=== PATIENT | female | born 1955 | race Caucasian/White ===

== ENCOUNTER 2020-01-07 20:50 | Inpatient (IN) | payer MEDICAID ==
[~2020-01-07] VITALS: Ht 147.3 cm; Wt 181.4 kg
[2020-01-07 20:58] VITALS: BP 140/98
[2020-01-07] MEDS ORDERED: ALUMINUM HYD/MAG/SIMETHICONE 30 ML UDC PO ONE (21:45)
[2020-01-07] MEDS ORDERED: ONDANSETRON 4 MG ODT PO ONE (21:45)
[2020-01-07] MEDS ORDERED: FAMOTIDINE 20 MG TAB PO ONE (21:45)
[2020-01-07 22:24] LABS: ALBUMIN 2.7 g/dL (3.4-5.0); ANION GAP 15.3 (8-16); CARBON DIOXIDE 26.3 mmol/L (21-32); CREATININE 0.9 mg/dL (0.6-1.3); POTASSIUM 3.6 mmol/L (3.5-5.1); TOTAL BILIRUBIN 0.5 mg/dL (0.0-1.0)
[2020-01-07 22:26] LABS: HEMATOCRIT 37.3 % (36-48); MEAN CORPUSCULAR HEMOGLOBIN 30 pg (27-31); MEAN CORPUSCULAR HGB CONC 32 g/dL (33-37); MEAN CORPUSCULAR VOLUME 92.3 fL (80-94); PLATELET COUNT (AUTO) 407 K/uL (140-450); RED BLOOD CELL COUNT(AUTO) 4.04 MIL/uL (4.20-5.40); RED CELL DISTRIBUTION WIDTH 14.3 % (11.6-13.7)
[2020-01-07 22:29] LABS: LYMPHOCYTES % (MANUAL) 15 % (20-46); MONOCYTES % (MANUAL) 5 % (5-12)
[2020-01-07] MEDS ORDERED: KETOROLAC 15 MG/ML VIAL IVP ONE (22:45)
[2020-01-07] MEDS ORDERED: NACL 0.9% 1,000 ML IV ONE (22:45)
[2020-01-07] MEDS ORDERED: ONDANSETRON 4 MG/2 ML VIAL IVP ONE (22:45)
[2020-01-07] MEDS ORDERED: KETOROLAC 15 MG/ML VIAL ONE (22:56)
[2020-01-07] MEDS ORDERED: ONDANSETRON 4 MG/2 ML VIAL ONE (22:56)
[2020-01-07 23:26] LABS: APPEARANCE,URINE CLOUDY (CLEAR); BILIRUBIN,URINE NEGATIVE (NEGATIVE); BLOOD, URINE 3+ (NEGATIVE); COLOR,URINE YELLOW (YELLOW); LEUKOCYTE ESTERASE ,URINE 2+ (NEGATIVE); NITRITE, URINE POSITIVE (NEGATIVE); UGLUCOSE NEGATIVE (NEGATIVE)
[2020-01-08 00:04] LABS: RBC,URINE 50-80 /HPF (0-5); WBC,URINE TOO MANY TO COUNT /HPF (0-5)
[2020-01-08] MEDS ORDERED: LIDOCAINE JELLY 2% 30 ML TUBE TP ONE (01:13)
[2020-01-08] MEDS ORDERED: NACL 0.9% 1,000 ML IV ONE (01:15)
[2020-01-08] MEDS ORDERED: cefTRIAXone 1,000 MG VIAL ONE (01:30)
[2020-01-08 04:00] VITALS: BP 144/71
[2020-01-08] MEDS: metroNIDAZOLE 500 MG/NS PREMIX 100 ML IV SCH ×3 (05:51→20:24)
[2020-01-08 05:56] LABS: BASOPHILS # (AUTO) 0.1 K/uL (0.00-0.22); BASOPHILS % (AUTO) 0.5 % (0.0-2.0); EOSINOPHILS # (AUTO) 0.1 K/uL (0-0.4); EOSINOPHILS % (AUTO) 0.7 % (0.0-4.0); HEMATOCRIT 35.5 % (36-48); HEMOGLOBIN 11.5 g/dL (12.0-16.0); LYMPHOCYTES # (AUTO) 2.9 K/uL (2.5-16.5); LYMPHOCYTES % (AUTO) 21.1 % (20.5-51.1); MEAN CORPUSCULAR HEMOGLOBIN 31 pg (27-31); MEAN CORPUSCULAR HGB CONC 33 g/dL (33-37); MEAN CORPUSCULAR VOLUME 93.8 fL (80-94); MONOCYTES # (AUTO) 0.6 K/uL (0.8-1.0); MONOCYTES % (AUTO) 4.5 % (1.7-9.3); NEUTROPHILS % (AUTO) 73.2 % (42.2-75.2); PLATELET COUNT (AUTO) 331 K/uL (140-450); RED BLOOD CELL COUNT(AUTO) 3.78 MIL/uL (4.20-5.40); RED CELL DISTRIBUTION WIDTH 14.6 % (11.6-13.7); WHITE BLOOD COUNT (AUTO) 13.7 K/uL (4.8-10.8)
[2020-01-08 06:12] LABS: ALBUMIN 2.3 g/dL (3.4-5.0); ANION GAP 15.7 (8-16); CARBON DIOXIDE 23.3 mmol/L (21-32); CREATININE 0.7 mg/dL (0.6-1.3); TOTAL BILIRUBIN 0.4 mg/dL (0.0-1.0)
[2020-01-08] MEDS ORDERED: ONDANSETRON 4 MG/2 ML VIAL IVP PRN (06:25)
[2020-01-08] MEDS: DEXT 5% / NACL 0.45% 1,000 ML IV SCH ×2 (06:25→17:23)
[2020-01-08] MEDS ORDERED: MORPHINE SULFATE 2 MG/ML SYR IVP PRN (06:25)
[2020-01-08] MEDS ORDERED: HYDROcodone/APAP 5/325 MG 1 TAB TAB PO PRN (06:25)
[2020-01-08] MEDS ORDERED: ZOLPIDEM 5 MG TAB PO PRN (06:25)
[2020-01-08] MEDS ORDERED: LORazepam 2 MG/ML VIAL IM/IVP PRN (06:25)
[2020-01-08] MEDS ORDERED: DOCUSATE SODIUM 100 MG GELCAP PO PRN (06:25)
[2020-01-08] MEDS ORDERED: ACETAMINOPHEN 325 MG TAB PO PRN (06:25)
[2020-01-08 07:01] LABS: CHOL/HDL RATIO 4.2 (1-4.5); FREE T4 (FREE THYROXINE) 1.34 ng/dL (0.76-1.46); MAGNESIUM 1.9 mg/dL (1.8-2.4); PHOSPHORUS 4.1 mg/dL (2.5-4.9); THYROID STIMULATING HORMONE 1.6 uIU/mL (0.34-3.74)
[2020-01-08 07:05] LABS: PROTHROMBIN TIME 9.8 secs (10.8-13.4)
[2020-01-08 08:00] VITALS: BP 157/73
[2020-01-08 11:00] LABS: BARBITURATE, URINE NEGATIVE ng/ml (NEG <=200); BENZODIAZEPINE, URINE POSITIVE ng/mL (NEG <=200)
[2020-01-08 11:01] LABS: CANNABINOID, URINE NEGATIVE ng/mL (NEG <=50); COCAINE, URINE NEGATIVE ng/mL (NEG <=300); OPIATE, URINE NEGATIVE ng/mL (NEG <=2000); PHENCYCLIDINE SCREEN,URINE NEGATIVE ng/mL (NEG <=25)
[2020-01-08 12:00] VITALS: BP 105/69
[2020-01-08] MEDS ORDERED: INSULIN LISPRO SLIDING SCALE 100 UNITS/ML VIAL SUBQ PRN (12:25)
[2020-01-08] MEDS ORDERED: DEXTROSE 50% 50 ML SYR IVP PRN (12:25)
[2020-01-08 16:00] VITALS: BP 112/68
[2020-01-08] MEDS: BLOOD GLUCOSE MONITORING 1 DEV DEV FS SCH ×2 (17:02→20:29)
[2020-01-08 20:00] VITALS: BP 96/54
[2020-01-09] VITALS: BP 107/55
[2020-01-09] MEDS: DEXT 5% / NACL 0.45% 1,000 ML IV SCH ×3 (02:46→22:25)
[2020-01-09 04:00] VITALS: BP 117/65
[2020-01-09] MEDS: metroNIDAZOLE 500 MG/NS PREMIX 100 ML IV SCH ×3 (05:37→21:16)
[2020-01-09] MEDS: BLOOD GLUCOSE MONITORING 1 DEV DEV FS SCH ×4 (06:35→21:17)
[2020-01-09 06:39] LABS: BASOPHILS # (AUTO) 0.1 K/uL (0.00-0.22); BASOPHILS % (AUTO) 1.1 % (0.0-2.0); EOSINOPHILS # (AUTO) 0.1 K/uL (0-0.4); EOSINOPHILS % (AUTO) 1.1 % (0.0-4.0); HEMOGLOBIN 9.4 g/dL (12.0-16.0); LYMPHOCYTES % (AUTO) 23.7 % (20.5-51.1); MEAN CORPUSCULAR HEMOGLOBIN 30 pg (27-31); MEAN CORPUSCULAR HGB CONC 33 g/dL (33-37); MEAN CORPUSCULAR VOLUME 92.9 fL (80-94); MONOCYTES # (AUTO) 0.7 K/uL (0.8-1.0); MONOCYTES % (AUTO) 7.7 % (1.7-9.3); NEUTROPHILS # (AUTO) 5.6 K/uL (1.8-7.7); NEUTROPHILS % (AUTO) 66.4 % (42.2-75.2); PLATELET COUNT (AUTO) 304 K/uL (140-450); RED BLOOD CELL COUNT(AUTO) 3.12 MIL/uL (4.20-5.40); RED CELL DISTRIBUTION WIDTH 14.2 % (11.6-13.7); WHITE BLOOD COUNT (AUTO) 8.5 K/uL (4.8-10.8)
[2020-01-09 07:01] LABS: ANION GAP 13.3 (8-16); CARBON DIOXIDE 23.6 mmol/L (21-32); CREATININE 0.5 mg/dL (0.6-1.3)
[2020-01-09 07:22] LABS: MAGNESIUM 1.9 mg/dL (1.8-2.4)
[2020-01-09 07:25] LABS: POTASSIUM 2.9 mmol/L (3.5-5.1)
[2020-01-09 08:00] VITALS: BP 112/52
[2020-01-09] MEDS ORDERED: POTASSIUM CHLORIDE 20% 40 MEQ/15 ML UDC PO SCH (08:05)
[2020-01-09] MEDS: LACTOBACILLUS RHAMNOSUS GG 1 EACH CAP PO SCH (08:48)
[2020-01-09] MEDS ORDERED: KCL 20 MEQ/WATER INJ PREMIX 200 ML IV SCH (09:00)
[2020-01-09 12:00] VITALS: BP 144/69
[2020-01-09 13:36] LABS: ALBUMIN 2.2 g/dL (3.4-5.0); ANION GAP 9.8 (8-16); CARBON DIOXIDE 26.1 mmol/L (21-32); CREATININE 0.6 mg/dL (0.6-1.3); POTASSIUM 3.9 mmol/L (3.5-5.1); TOTAL BILIRUBIN 0.2 mg/dL (0.0-1.0)
[2020-01-09 16:00] VITALS: BP 140/63
[2020-01-09] MEDS: LACTULOSE 20 GM/30 ML UDC PO SCH ×2 (16:05→21:16)
[2020-01-09] MEDS: SENNA 8.6 MG TAB PO SCH (16:05)
[2020-01-09 20:00] VITALS: BP 143/82
[2020-01-09] MEDS: SUPREP BOWEL PREP KIT 354 ML SOLN.RECON PO SCH (21:14)
[2020-01-09] MEDS: POTASSIUM CHLORIDE 20% 40 MEQ/15 ML UDC PO SCH (21:16)
[2020-01-10] VITALS: BP 144/77
[2020-01-10 04:00] VITALS: BP 140/80
[2020-01-10] MEDS: DEXT 5% / NACL 0.45% 1,000 ML IV SCH (05:09)
[2020-01-10] MEDS: metroNIDAZOLE 500 MG/NS PREMIX 100 ML IV SCH (05:10)
[2020-01-10 05:59] LABS: BASOPHILS % (AUTO) 0.6 % (0.0-2.0); EOSINOPHILS # (AUTO) 0.1 K/uL (0-0.4); EOSINOPHILS % (AUTO) 1.3 % (0.0-4.0); HEMATOCRIT 33.7 % (36-48); LYMPHOCYTES # (AUTO) 2.2 K/uL (2.5-16.5); LYMPHOCYTES % (AUTO) 33.1 % (20.5-51.1); MEAN CORPUSCULAR HEMOGLOBIN 31 pg (27-31); MEAN CORPUSCULAR HGB CONC 33 g/dL (33-37); MEAN CORPUSCULAR VOLUME 93.5 fL (80-94); MONOCYTES # (AUTO) 0.8 K/uL (0.8-1.0); MONOCYTES % (AUTO) 11.8 % (1.7-9.3); NEUTROPHILS # (AUTO) 3.6 K/uL (1.8-7.7); NEUTROPHILS % (AUTO) 53.2 % (42.2-75.2); PLATELET COUNT (AUTO) 337 K/uL (140-450); RED CELL DISTRIBUTION WIDTH 14.1 % (11.6-13.7); WHITE BLOOD COUNT (AUTO) 6.7 K/uL (4.8-10.8)
[2020-01-10 06:27] LABS: CARBON DIOXIDE 21.9 mmol/L (21-32); CREATININE 0.7 mg/dL (0.6-1.3); POTASSIUM 3.9 mmol/L (3.5-5.1)
[2020-01-10 06:32] LABS: MAGNESIUM 2.1 mg/dL (1.8-2.4); PHOSPHORUS 2.8 mg/dL (2.5-4.9)
[2020-01-10] MEDS: BLOOD GLUCOSE MONITORING 1 DEV DEV FS SCH ×5 (07:44→21:16)
[2020-01-10 08:00] VITALS: BP 141/89
[2020-01-10] MEDS: LACTOBACILLUS RHAMNOSUS GG 1 EACH CAP PO SCH (08:49)
[2020-01-10] MEDS: LACTULOSE 20 GM/30 ML UDC PO SCH ×2 (08:49→10:40)
[2020-01-10] MEDS: SUPREP BOWEL PREP KIT 354 ML SOLN.RECON PO SCH (08:50)
[2020-01-10] MEDS: SENNA 8.6 MG TAB PO SCH (08:50)
[2020-01-10] MEDS: POTASSIUM CHLORIDE 20% 40 MEQ/15 ML UDC PO SCH ×2 (08:50→21:09)
[2020-01-10] MEDS ORDERED: fentaNYL citrate 0.05 MG/ML VIAL ONE (09:56)
[2020-01-10] MEDS ORDERED: MIDAZOLAM 2 MG/2 ML VIAL ONE (09:56)
[2020-01-10] MEDS ORDERED: diphenhydrAMINE 50 MG/ML VIAL ONE (09:56)
[2020-01-10] MEDS: fentaNYL citrate 0.05 MG/ML VIAL IVP ONE ×2 (10:02→10:45)
[2020-01-10] MEDS: MIDAZOLAM 2 MG/2 ML VIAL IVP ONE ×2 (10:02→10:45)
[2020-01-10 12:00] VITALS: BP 146/81
[2020-01-11] VITALS: BP 116/73
[2020-01-11 06:07] LABS: BASOPHILS # (AUTO) 0.1 K/uL (0.00-0.22); EOSINOPHILS # (AUTO) 0.1 K/uL (0-0.4); EOSINOPHILS % (AUTO) 1.5 % (0.0-4.0); HEMATOCRIT 32.9 % (36-48); HEMOGLOBIN 10.8 g/dL (12.0-16.0); LYMPHOCYTES # (AUTO) 2.5 K/uL (2.5-16.5); LYMPHOCYTES % (AUTO) 32.8 % (20.5-51.1); MEAN CORPUSCULAR HEMOGLOBIN 31 pg (27-31); MEAN CORPUSCULAR HGB CONC 33 g/dL (33-37); MEAN CORPUSCULAR VOLUME 93.2 fL (80-94); MONOCYTES # (AUTO) 0.8 K/uL (0.8-1.0); MONOCYTES % (AUTO) 10.5 % (1.7-9.3); NEUTROPHILS # (AUTO) 4.1 K/uL (1.8-7.7); NEUTROPHILS % (AUTO) 54.2 % (42.2-75.2); PLATELET COUNT (AUTO) 359 K/uL (140-450); RED BLOOD CELL COUNT(AUTO) 3.53 MIL/uL (4.20-5.40); WHITE BLOOD COUNT (AUTO) 7.6 K/uL (4.8-10.8)
[2020-01-11 06:30] LABS: ANION GAP 12.4 (8-16); CARBON DIOXIDE 24.9 mmol/L (21-32); CREATININE 0.8 mg/dL (0.6-1.3); POTASSIUM 4.3 mmol/L (3.5-5.1)
[2020-01-11] MEDS ORDERED: LANSOPRAZOLE 30 MG CAPDR PO SCH (06:30)
[2020-01-11 06:51] LABS: MAGNESIUM 1.7 mg/dL (1.8-2.4); PHOSPHORUS 2.9 mg/dL (2.5-4.9)
[2020-01-11] MEDS: BLOOD GLUCOSE MONITORING 1 DEV DEV FS SCH ×3 (07:33→16:43)
[2020-01-11 08:00] VITALS: BP 121/85
[2020-01-11] MEDS: POTASSIUM CHLORIDE 20% 40 MEQ/15 ML UDC PO SCH (08:56)
[2020-01-11] MEDS: LACTOBACILLUS RHAMNOSUS GG 1 EACH CAP PO SCH (08:57)
[2020-01-11] MEDS: LACTULOSE 20 GM/30 ML UDC PO SCH (08:57)
[2020-01-11] MEDS ORDERED: MAGNESIUM OXIDE 400 MG TAB PO SCH (12:00)
[2020-01-11] MEDS ORDERED: SIME80TA22 PO (15:34)
[2020-01-11] MEDS ORDERED: OMEP20TC10 PO (15:34)
[2020-01-11] MEDS ORDERED: NITR100C7 PO (15:34)
[2020-01-11 16:00] VITALS: BP 118/81
== END 2020-01-11 18:00 | disposition home or self-care (01) | DRG 720 ==
LOC: MED 20:50 → MTU 01-08 01:34
PROVIDERS: ADMIT Family Medicine; ATTEND Family Medicine
PROC: 0DB68ZX Excision of Stomach, Via Natural or Artificial Opening Endoscopic, Diagnostic (ICD-10-PCS; principal; 2020-01-10 09:45)
PROC: 0DJD8ZZ Inspection of Lower Intestinal Tract, Via Natural or Artificial Opening Endoscopic (ICD-10-PCS; 2020-01-10 09:45)
DX: A41.9 Sepsis, unspecified organism (principal); N39.0 Urinary tract infection, site not specified; E43 Unspecified severe protein-calorie malnutrition; Z68.45 Body mass index [BMI] 70 or greater, adult; K25.9 Gastric ulcer, unspecified as acute or chronic, without hemorrhage or perforation; B96.20 Unspecified Escherichia coli [E. coli] as the cause of diseases classified elsewhere; K57.30 Diverticulosis of large intestine without perforation or abscess without bleeding; D64.9 Anemia, unspecified; K76.0 Fatty (change of) liver, not elsewhere classified; E78.5 Hyperlipidemia, unspecified; E83.51 Hypocalcemia; K52.9 Noninfective gastroenteritis and colitis, unspecified
CPT/HCPCS: 36415; 71045; 74250; 80048; 80053; 80305; 81001; 82150; 82272; 82948; 83036; 83605; 83690; 83735; 83880; 84100; 84439; 84443; 84484; 85025; 85610; 85730; 87040; 87070; 87081; 87086; 93005; J0696; J1200; J1815; J1885; J2250; J2405; J3010; J3480; J3490; J7030; J7060; Q0092; Q0162; Q9967